=== PATIENT | male | born 1990 | race Caucasian/White ===

== ENCOUNTER 2024-08-31 22:51 | Emergency (ER) | payer BC, SELFPAY ==
[2024-08-31 22:59] VITALS: BP 116/94
[2024-08-31 23:15] VITALS: BP 131/96
--- NOTE | 2024-08-31 23:57 | ED.GENMED ---
History of Present Illness
General
Chief Complaint: Skin Surface Trauma
Time Seen by Provider: 08/31/24 23:31
History of Present Illness
History of Present Illness:
34-year-old male without significant past medical history presenting for left thumb pain. Patient is a vehicle mechanic, and prior to arrival a piece of car equipment landed on his thumb. He immediately had bleeding. Denies numbness. Denies issues with
range of motion. Reports that his tetanus is up-to-date. Denies fever. Denies additional acute medical complaints or injuries
Past History
Past History
ED Past Medical History: None
ED Past Surgical History: None
Social History
Tobacco: Non-smoker
Alcohol: Occasional
Personal:
Living: with family
Employment: Employed ([employer])
Phy Exam
Physical Exam
Physical Exam:
General: Well-appearing, no clinical signs of dehydration, nontoxic and in no acute distress
HEENT: protecting airway
Neck: appears supple
CV: Normal heart rate
Resp: No accessory muscle use, no increased work of breathing
Abd: no distention
Extremities: No obvious deformity to the left thumb. Range of motion intact. Distal sensation intact. Obvious injury to the nailbed with partial avulsion of the nail. Bleeding controlled
Neuro: alert, no focal neurologic deficit
: deferred
Rectal: deferred
Psych: Normal affect
Skin: Intact
Course
Orders/Labs/Results
Orders:
Orders
08/31/24 23:41
Thumb/Finger(s) 2 View Lt [CR Finger(s)/thumb Min 2 Vw Lt] Urgent
Comment:
Reason For Exam: crush injury
09/01/24 01:09
Cephalexin Monohydrate [Keflex] 500 mg PO NOW STA
Ketorolac [Toradol] 30 mg IM NOW STA
Vital Signs
Initial and Last Documented VS:
Initial Vital Signs
Temp Pulse Resp BP Pulse Ox
98.7 F 88 18 116/94 95
08/31/24 22:59 08/31/24 22:59 08/31/24 22:59 08/31/24 22:59 08/31/24 22:59
Last Documented Vital Signs
Temp Pulse Resp BP Pulse Ox
98.7 F 88 18 124/84 97
08/31/24 22:59 08/31/24 22:59 08/31/24 22:59 09/01/24 01:00 09/01/24 01:00
Procedures
Laceration Closure
Left Distal Thumb:
Status of Wound: clean
Description of Wound Edges: macerated
Skin Closure Material: other (3-0 vicryl)
Number of sutures: 4
Additional information:
unable to quantify size of wound, under nailbed, macerated
MDM/Problems Addressed
MDM/Problems Addressed:
34-year-old male presenting for left thumb injury. Vital signs are normal.
On exam, patient well-appearing, no acute distress. Patient presenting with crush injury to the left thumb. Given injury to the nailbed, concern for underlying fracture. Will obtain x-ray imaging. Otherwise no neurovascular compromise to the
digit. Patient reports tetanus is up-to-date.
23:55 - Right confirms distal tuft fracture. Will clean and irrigate wound and explore after digital block
00:30 -trephination of nail completed, wound sutured as best as possible, difficult given macerated tissue. Hemostasis obtained, Gelfoam placed over nail. Actual nailbed itself is intact. Wound was appropriately dressed and splint provided.
Given location of fracture with overlying injury, will start on antibiotic. Otherwise feel stable for discharge with interval follow-up with orthopedics. Return precautions discussed and patient verbalized understanding
*Critical Care Note
Total Time (30-74mins, 75-104mins- exclusive of procedures): Not Applicable
ED Attending Note
-
Portions of this chart may have been created with voice recognition software.� Occasional wrong word or��sound alike� substitutions may have occurred due to the inherent limitations of voice recognition software.
Discharge Plan
Departure
Patient Disposition: Home (Routine Discharge)
Date of Disposition: 09/01/24
Time of Disposition: 01:12
Patient with high blood pressure during this ER visit?: No
Condition: Good
Discharge Problem:
Open fracture of tuft of distal phalanx of left thumb
Instructions: Wound Care (DC), Laceration Repair With Stitches (DC)
Prescriptions:
New
cephalexin 500 mg capsule
500 mg PO Q8H 7 Days Qty: 21 0RF
Referrals:
Gracie Diez I., DO [Active] - (open tuft fracture)
UNKNOWN - PT DOES,NOT KNOW [Family Provider] -
Activity Restrictions/Additional Instructions:
You were seen in the emergency department for thumb injury
You were found to have a fracture to the distal aspect of your thumb. Your nail had to be removed and sutures were placed, which will absorb with time. Please keep the area clean and take your antibiotic as directed. Maintain your splint for
appropriate healing.
Please follow-up with the orthopedic doctor
Return to the emergency department for any worsening of your symptoms, including increased pain or swelling to the thumb, redness or warmth of the thumb, abnormal drainage from the thumb, numbness or tingling to the digit, or any development of
chest pain, difficulty breathing, abdominal pain with persistent vomiting and inability to tolerate food or liquid by mouth (concern for dehydration), weakness, headache or confusion, fever greater than 100.4, or any additional symptoms that are
concerning to you.
Thank you for choosing [facility].
Interventions
Interventions:
*Risk Screen - Suicide Last Done: 08/31/24 22:53
*General Assessment Last Done: 08/31/24 23:18
*Neglect/Abuse Screening Last Done: 08/31/24 23:00
ED- Fall Risk Assessment Last Done: 08/31/24 23:18
*ED COVID-19 Vaccine History Last Done: 08/31/24 23:00
ED-Skin Assessment Last Done: 08/31/24 23:18
Discharge Date and Time
Print Language: SWISS
[2024-09-01 00:34] VITALS: BP 129/92
[2024-09-01 01:00] VITALS: BP 124/84
[2024-09-01] MEDS: TORADOL 30 MG IM (01:14)
[2024-09-01] MEDS: KEFLEX 500 MG PO (01:14)
== END 2024-09-01 01:21 | disposition home or self-care (01) ==
LOC: EMR 22:51
PROVIDERS: EMERGENCY PHYSICIAN Student in an Organized Health Care Education/Training Program
DX: S62.522B Displaced fracture of distal phalanx of left thumb, initial encounter for open fracture (principal); W23.0XXA Caught, crushed, jammed, or pinched between moving objects, initial encounter
CPT/HCPCS: 64450; 99284; 96372; 11740; 73140